=== PATIENT | female | born 1975 | race Hispanic/Latino ===

== ENCOUNTER 2023-09-17 11:53 | Emergency (ER) | payer OTHER ==
[~2023-09-17] VITALS: Ht 152.4 cm; Wt 113.4 kg
[~2023-09-17 11:53] MED LIST: LEVO500T2 PO; METR500T PO
[2023-09-17 15:38] VITALS: BP 115/72; PULSE 84; RESP 16; O2SAT 98
[2023-09-17] MEDS ORDERED: KETOROLAC 60 MG VIAL (30MG/ML) IM ONE (16:00)
[2023-09-17] MEDS ORDERED: LIDO1ADH71 TP (16:46)
[2023-09-17] MEDS ORDERED: IBUP-2077 PO (16:46)
[2023-09-17] MEDS ORDERED: CYCL5TAB PO (16:46)
== END 2023-09-17 16:59 | disposition home or self-care (01) ==
LOC: EDH 11:53
DX: M19.90 Unspecified osteoarthritis, unspecified site (principal); M54.6 Pain in thoracic spine; F41.9 Anxiety disorder, unspecified; F32.A Depression, unspecified; Z79.899 Other long term (current) drug therapy; Z98.890 Other specified postprocedural states; W18.39XA Other fall on same level, initial encounter; Y93.89 Activity, other specified; Y92.89 Other specified places as the place of occurrence of the external cause; Y99.8 Other external cause status
CPT/HCPCS: 99285; 72131; 72128; 96372; J1885